=== PATIENT | female | born 1955 | race Caucasian/White ===

== ENCOUNTER 2016-09-07 11:09 | Day surgery (SDC) | payer SELFPAY ==
[~2016-09-07 11:09] MED LIST: ACETAMINOPHEN325 M2 PO; ASPIR-TRIN325 M1 PO; ASPIRIN325 MG PO; FIORICET TABLET1 TAB PO; MOTRIN800 MG PO; NORCO 7.5-3251 EACH PO; OS-CAL 500+D31 EAC1 PO; PERCOCET 5/3251 TAB PO; SOLODYN; VIT B COMPLEX PO; XANAX0.5 MG PO
== END 2016-09-07 14:45 ==
LOC: SHSA 11:09
PROC: 0RSMXZZ Reposition Left Elbow Joint, External Approach (ICD-10-PCS; principal; 2016-09-07)
DX: M24.622 Ankylosis, left elbow (principal); F41.9 Anxiety disorder, unspecified; F32.9 Major depressive disorder, single episode, unspecified; Z86.73 Personal history of transient ischemic attack (TIA), and cerebral infarction without residual deficits; Z91.041 Radiographic dye allergy status; Z98.890 Other specified postprocedural states
CPT/HCPCS: J1040; J2250; J3010